=== PATIENT | female | born 2005 | race Two or more races ===

== ENCOUNTER 2025-05-31 16:33 | Emergency (ER) | payer OTHER ==
[~2025-05-31] VITALS: Ht 157.5 cm; Wt 55.7 kg
[2025-05-31 17:21] VITALS: BP 133/85; PULSE 109; RESP 18; TEMP 98; O2SAT 97
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
== END 2025-05-31 20:04 | disposition home or self-care (01) ==
LOC: ER 16:33
DX: O26.892 Other specified pregnancy related conditions, second trimester (principal); R10.84 Generalized abdominal pain; R07.89 Other chest pain; Z3A.16 16 weeks gestation of pregnancy; V89.2XXA Person injured in unspecified motor-vehicle accident, traffic, initial encounter; Y93.I9 Activity, other involving external motion; Y92.488 Other paved roadways as the place of occurrence of the external cause; Y99.8 Other external cause status
CPT/HCPCS: 76805

== ENCOUNTER → 2025-07-23 | Outpatient (CLI) | payer MEDICAID ==
[2025-07-23 10:30] LABS: Hematocrit 38.7 % (36.0-46.0); Hemoglobin 13.5 g/dL (12.2-16.2); Mean Corpuscular Hemoglobin 31.7 pg (28.0-32.0); Mean Corpuscular Volume 91.2 fL (80.0-100.0); Nucleated Red Blood Cells % 0.0 %
[2025-07-23 11:17] LABS: Amphetamine Screen, Urine Neg (NEGATIVE); Barbiturate Scree,Urine Neg (NEGATIVE); Benzodiazephine Screen, Urine Neg (NEGATIVE); Cannabinoid Screen, Urine Neg (NEGATIVE); Cocaine Screen, Urine Neg (NEGATIVE); Opiate Scree,Urine Neg (NEGATIVE); Phencyclidine Screen, Urine Neg (NEGATIVE)
[2025-07-25 04:06] LABS: Chlamydia Trachomatis, NAA Negative (Negative); Neisseria gonorrhoeae, NAA Negative (Negative)
== END | disposition home or self-care (01) ==
LOC: LAB 10:00
PROVIDERS: ATTEND Obstetrics & Gynecology
DX: Z34.82 Encounter for supervision of other normal pregnancy, second trimester (principal); Z72.51 High risk heterosexual behavior; Z3A.00 Weeks of gestation of pregnancy not specified
CPT/HCPCS: 36415; 80307; 83036; 84144; 84702; 85025; 86703; 86762; 86780; 86850; 86900; 86901; 87086; 87340

== ENCOUNTER 2025-09-01 08:00 | Outpatient (CLI) | payer MEDICAID ==
[2025-09-01 08:33] LABS: Hematocrit 38.9 % (36.0-46.0); Hemoglobin 13.1 g/dL (12.2-16.2); Mean Corpuscular Hemoglobin 30.7 pg (28.0-32.0); Mean Corpuscular Volume 91.5 fL (80.0-100.0); Nucleated Red Blood Cells % 0.0 %
== END 2025-09-01 17:00 | disposition home or self-care (01) ==
LOC: LAB 08:00
PROVIDERS: ATTEND Obstetrics & Gynecology
DX: Z34.00 Encounter for supervision of normal first pregnancy, unspecified trimester (principal); Z3A.00 Weeks of gestation of pregnancy not specified
CPT/HCPCS: 36415; 82951; 83036; 85025

== ENCOUNTER 2025-09-13 08:51 | Outpatient (CLI) | payer MEDICAID ==
[2025-09-13 09:27] LABS: Hematocrit 40.0 % (36.0-46.0); Hemoglobin 14.0 g/dL (12.2-16.2); Mean Corpuscular Hemoglobin 31.9 pg (28.0-32.0); Mean Corpuscular Volume 91.1 fL (80.0-100.0); Nucleated Red Blood Cells % 0.1 %
== END 2025-09-13 17:00 | disposition home or self-care (01) ==
LOC: LAB 08:51
PROVIDERS: ATTEND Obstetrics & Gynecology
DX: Z34.00 Encounter for supervision of normal first pregnancy, unspecified trimester (principal); Z3A.00 Weeks of gestation of pregnancy not specified
CPT/HCPCS: 36415; 82951; 83036; 85025

== ENCOUNTER 2025-10-02 16:21 | Observation (INO) | payer MEDICAID ==
[~2025-10-02] VITALS: Ht 157.5 cm; Wt 70.8 kg
[2025-10-02] MEDS: LACTATED RINGER'S 1,000 ML IV ONE (17:36)
[2025-10-02] MEDS: BETAMETHASONE ACET (30mg/5ml) 5ml Vial 6mg/ml IM ONE (18:35)
--- NOTE | 2025-10-02 18:43 | DVH ---
BIOPHYSICAL PROFILE HISTORY: Decreased movement, R/O SROM, contractions TECHNIQUE: Multiple transabdominal real-time grayscale sonographic images through the gravid uterus of the fetus with duplex Doppler color flow and M-mode spectral analysis FINDINGS: BIOPHYSICAL PROFILE: breathing score: 2 movement score: 2 tone score: 2 Quantitative GEORGE score: 2 (GEORGE: 6.8 cm, mvp: 3.1 cm.) Total score: 8/8 The cervix 2.7 Single live fetus in cephalic presentation. heart rate 153 beats per minute. Anterior Grade 2 placenta without previa or abruption Single live fetus at 33 weeks 2 days Biophysical profile score 8/8 corresponding to an JOSE of 11/18/2025 IMPRESSION: 1. Biophysical profile score: 8/8. 2. GEORGE 6.8 cm. Borderline oligohydramnios 3. 153 bpm.
[2025-10-02] MEDS: TERBUTALINE SULFATE 1 MG/ML 1ML VIAL SC SCH (19:25)
[2025-10-02 20:06] LABS: Urine Protein, UAD Negative (Negative)
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
--- NOTE | 2025-10-02 20:28 | DVH ---
LIMITED OB ULTRASOUND > 14 WKS: HISTORY: LOW GEORGE REPEAT TECHNIQUE: Multiple real-time grayscale images of the gravid uterus with duplex Doppler color flow and M-mode spectral analysis. TRANSDUCER: Transabdominal FINDINGS: IUP single live fetus at 33 weeks 2 days based on composite averages of the BPD, head circumference, abdominal circumference and femur length heart rate 153 beats per minute GEORGE 10.06 cm, mvp: 4.4 cm cm Cephalic Presentation Anterior Grade 2 Placenta without previa or abruption. IMPRESSION: 1. IUP single live fetus at 33 weeks 2 days AUA corresponding to an JOSE of November 18, 2025. 2. GEORGE: 10.06 cm
[2025-10-03] MEDS ORDERED: PREN-96 PO ×2 (17:38)
== END 2025-10-02 21:11 | disposition home or self-care (01) ==
LOC: LDRP 16:21
PROVIDERS: ADMIT Obstetrics & Gynecology; ATTEND Obstetrics & Gynecology
DX: O60.03 Preterm labor without delivery, third trimester (principal); O41.03X0 Oligohydramnios, third trimester, not applicable or unspecified; Z3A.33 33 weeks gestation of pregnancy; Z79.899 Other long term (current) drug therapy; Z98.890 Other specified postprocedural states
CPT/HCPCS: 59025; 76815; 76819; 81001; 81002; 84112; 87086; 94760; 96360; 96361; 96372; A4649; G0378; J0702; J3105

== ENCOUNTER 2025-10-03 03:06 | Observation (INO) | payer MEDICAID ==
[~2025-10-03] VITALS: Ht 157.5 cm; Wt 70.8 kg
[2025-10-03] MEDS: BETAMETHASONE ACET (30mg/5ml) 5ml Vial 6mg/ml IM ONE (17:30)
[2025-10-03] MEDS ORDERED: PREN-96 PO ×2 (17:38)
--- NOTE | 2025-10-03 17:43 | DVH ---
LIMITED OB ULTRASOUND > 14 WKS: HISTORY: Labor TECHNIQUE: Multiple real-time grayscale images of the gravid uterus with duplex Doppler color flow and M-mode spectral analysis. TRANSDUCER: Transabdominal and transvaginal FINDINGS: IUP single live fetus at 32 weeks 3 days based on composite averages of the BPD, head circumference, abdominal circumference and femur length Estimated weight 1816 g, 19.6% grams heart rate 21 beats per minute GEORGE 12.1 cm, 5.1 cm Cervix 3.12 cm and appears closed Cephalic Presentation Anterior placenta Grade 2 without previa or abruption. ANATOMY: 4-CHAMBER HEART: Within normal limits STOMACH: Within normal limits RIGHT KIDNEY: Within normal limits Left kidney: Within normal limits BLADDER: Within normal limits GESTATIONAL DATING: BPD: 8.34 cm= 33 weeks 4 days 48.5% plus or minus 3 weeks 1 day HC: 30.19 cm= 33 weeks 4 days +/-3 weeks 0 days, 16.9% AC: 27.1 cm= 33 weeks 4 days +/-3 weeks 0 days, 4.5% FL: 6.04 cm= 31 weeks 3 days 4.1% +/-3 weeks 0 days CI: 78.94 range 70.00 -86.00 FL/BPD: 72.49 range 70.0-87.0 HC/AC: 1.11 range 0.96 - 1.13 FL/AC: 22.3 range 20.00-24.00 FL/AC: 20.01 range 19.44 -21.39 IMPRESSION: 1. IUP single live fetus at 32 weeks 3 days AUA corresponding to an JOSE of 11/25 2. FHR: 121 bpm
== END 2025-10-03 17:43 | disposition home or self-care (01) ==
LOC: LDRP 16:06
PROVIDERS: ADMIT Obstetrics & Gynecology; ATTEND Obstetrics & Gynecology
DX: O62.9 Abnormality of forces of labor, unspecified (principal); Z3A.33 33 weeks gestation of pregnancy; Z98.890 Other specified postprocedural states
CPT/HCPCS: 59025; 76805; 76817; 81002; 94760; 96372; A4649; G0378

== ENCOUNTER 2025-10-13 10:49 | Outpatient (CLI) | payer MEDICAID ==
[~2025-10-13 10:49] MED LIST: PREN-96 PO
[2025-10-13 11:17] LABS: Hematocrit 42.3 % (36.0-46.0); Hemoglobin 14.6 g/dL (12.2-16.2); Mean Corpuscular Hemoglobin 31.3 pg (28.0-32.0); Mean Corpuscular Volume 90.6 fL (80.0-100.0); Nucleated Red Blood Cells % 0.0 %
[2025-10-15 05:08] LABS: Chlamydia Trachomatis, NAA Negative (Negative); Neisseria gonorrhoeae, NAA Negative (Negative)
== END 2025-10-13 17:00 | disposition home or self-care (01) ==
LOC: LAB 10:49
PROVIDERS: ATTEND Obstetrics & Gynecology
DX: Z34.80 Encounter for supervision of other normal pregnancy, unspecified trimester (principal); Z11.3 Encounter for screening for infections with a predominantly sexual mode of transmission; Z72.51 High risk heterosexual behavior; Z3A.00 Weeks of gestation of pregnancy not specified
CPT/HCPCS: 36415; 85025; 86780

== ENCOUNTER 2025-11-01 18:52 | Observation (INO) | payer MEDICAID ==
[~2025-11-01] VITALS: Ht 157.5 cm; Wt 75.7 kg
--- NOTE | 2025-11-01 20:41 | DVHDS2 ---
Physician Discharge Progress N Final Diagnosis: well being established Round ligament pain Operations or Procedures: Operations or Procedures S: 20yo IUP@37.4wks, Denies UCs/LOF/VB/MARQUEZ/vision changes/RUQ pain. Endorses +FM. States she is having abdominal pain and is unsure if it is labor related. States pain is constant and worse with movement. PNC with Dr. Lorenzo at [facility] OB, uncomplicated. O: VSS NST Reactive VE: Closed/0/-1 A: 20yo IUP@37.4wks gestation wellbeing Established Round ligament pain P: D/C home PreE/labor precautions reviewed. kick counts reviewed Pt encouraged to drink more water and wear belly band for ligament pain. Follow up with Dr. Lorenzo at clinic as scheduled. Condition on Discharge: Stable Disposition: Home Discharge Instructions: Diet: Regular Activity: No Restrictions, As Tolerated Medications: SEE MED List Follow Up Care: Specialist: Follow up with Dr. Lorenzo in next scheduled appointment. Discharge Statement: "Patient was advised to return to the ER or call 911 if any headaches, dizziness, shortness of breath, chest pain, abdominal pain, bleeding, fevers, or worsening of medical condition. Patient was counseled about treatment plan, medications, possible side effects, patientverbalized understanding. All questions were answered to the best of my ability. This discharge took greater then 30 minutes in planning, reviewing do cumentation, counseling the patient, and discussing with other team members." Visit Coding OBGYN Date of Service: Nov 01, 2025 Billing Provider: ELLEN TREJO CNM EXPLOSIVE OPERATOR FUSE Common Visit Codes: 03608-[id number] OBS CARE (MOD) EXPLOSIVE OPERATOR FUSE Procedure Codes: 96184-78- NON-STRESS TEST CHRISTO LAIRD STUDENTMDW Nov 01, 2025 20:41
== END 2025-11-01 20:03 | disposition home or self-care (01) ==
LOC: LDRP 18:52
PROVIDERS: ADMIT Obstetrics & Gynecology; ATTEND Obstetrics & Gynecology
DX: O26.893 Other specified pregnancy related conditions, third trimester (principal); R10.20 Pelvic and perineal pain unspecified side; Z3A.37 37 weeks gestation of pregnancy; Z98.890 Other specified postprocedural states
CPT/HCPCS: 59025; 81002; 94760; A4649; G0378